=== PATIENT | female | born 1970 | race Caucasian/White ===

== ENCOUNTER 2016-12-16 13:45 | Emergency (ER) | payer OTHER | END 2016-12-16 16:22 | disposition home or self-care (01) | LOC: ER 13:45 | DX: S20.229A Contusion of unspecified back wall of thorax, initial encounter (principal); S40.021A Contusion of right upper arm, initial encounter; Y04.0XXA Assault by unarmed brawl or fight, initial encounter; Y07.59 Other non-family member, perpetrator of maltreatment and neglect; Y92.019 Unspecified place in single-family (private) house as the place of occurrence of the external cause; M54.9 Dorsalgia, unspecified; E78.5 Hyperlipidemia, unspecified; F17.210 Nicotine dependence, cigarettes, uncomplicated; Z79.899 Other long term (current) drug therapy; Z79.1 Long term (current) use of non-steroidal anti-inflammatories (NSAID) | CPT/HCPCS: 72072; 73030; 73080; 73110; 96372; 99070; 99283-25 ==